=== PATIENT | female | born 1985 | race African-American/Black ===

== ENCOUNTER 2019-06-22 10:40 | Emergency (ER) | payer OTHER ==
[2019-06-22 10:52] VITALS: BP 106/52; PULSE 79; TEMP 98.2; BMI 31.1
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
== END 2019-06-22 11:32 | disposition home or self-care (01) ==
LOC: JERFT 10:40
DX: S16.1XXA Strain of muscle, fascia and tendon at neck level, initial encounter (principal); V49.59XA Passenger injured in collision with other motor vehicles in traffic accident, initial encounter; Y92.414 Local residential or business street as the place of occurrence of the external cause; Y93.89 Activity, other specified; Y99.8 Other external cause status; Z88.8 Allergy status to other drugs, medicaments and biological substances
CPT/HCPCS: 99282-25